=== PATIENT | male | born 1970 | race Hispanic/Latino ===

== ENCOUNTER 2016-07-16 03:38 | Emergency (ER) | payer MEDICARE, MEDICAID ==
[2016-07-16 03:39] VITALS: BMI 20.3
[2016-07-16 04:02] VITALS: TEMP 98.6; O2SAT 99
[2016-07-16] MEDS ORDERED: Sodium Chloride 0.9% 1,000 ML IV STA (04:26)
--- NOTE | 2016-07-16 04:41 | ED PDOC ---
Syncope/Near Syncope/Dizzyness Chief Complaint (Provider): dizziness History Per: Patient Additional Complaint(s): pt reports feeling dizzy, foggy and just "not well" since having seizure medications adjusted 2-3 weeks ago. pt is unable to give further symptomatology or last seizure episode. <Michi Kessler - Last Filed: 07/16/16 05:17> <Zuhair Santos - Last Filed: 07/16/16 05:54> Time Seen by Provider: 07/16/16 04:02 Chief Complaint (Nursing): Dizziness/Lightheaded Past Medical History Reviewed: Historical Data, Nursing Documentation, Vital Signs Vital Signs: Last Vital Signs Temp 98.6 F 07/16/16 03:58 Pulse 53 L 07/16/16 03:58 Resp 16 07/16/16 03:58 BP 94/58 L 07/16/16 03:58 Pulse Ox 99 07/16/16 03:58 - Medical History PMH: Cardia Arrhythmia, Seizures Denies: Chronic Kidney Disease - Surgical History Surgical History: Pacemaker - Family History Family History: States: No Known Family Hx - Social History Current smoker - smoking cessation education provided: No Alcohol: None Drugs: Denies <Michi Kessler - Last Filed: 07/16/16 05:17> Vital Signs: Last Vital Signs Temp 98.6 F 07/16/16 03:58 Pulse 59 L 07/16/16 05:24 Resp 17 07/16/16 05:24 BP 117/62 07/16/16 05:24 Pulse Ox 99 07/16/16 05:27 <Zuhair Santos - Last Filed: 07/16/16 05:54> - Home Medications Home Medications: Ambulatory Orders Medication Instructions Recorded Divalproex [Depakote ER] 500 mg PO BID 08/05/15 Levetiracetam [Keppra] 750 mg PO TID 08/05/15 Brivaracetam [Briviact] 1 tab PO DAILY 07/16/16 - Allergies Allergies/Adverse Reactions: Allergies Allergy/AdvReac Type Severity Reaction Status Date / Time No Known Allergies Allergy Verified 04/07/16 17:10 Review of Systems ROS Statement: Except As Marked, All Systems Reviewed And Found Negative Neurological: Positive for: Dizziness <Michi Kessler - Last Filed: 07/16/16 05:17> Physical Exam - Reviewed Nursing Documentation Reviewed: Yes Vital Signs Reviewed: Yes - Physical Exam Appears: Positive for: Well, Non-toxic, No Acute Distress Head Exam: Positive for: ATRAUMATIC, NORMAL INSPECTION, NORMOCEPHALIC Skin: Positive for: Normal Color, Warm, DRY Eye Exam: Positive for: EOMI, Normal appearance, PERRL Neck: Positive for: Normal, Painless ROM Cardiovascular/Chest: Positive for: Regular Rate, Rhythm Respiratory: Positive for: CNT, Normal Breath Sounds Gastrointestinal/Abdominal: Positive for: Normal Exam, Bowel Sounds, Soft. Negative for: Tenderness Extremity: Positive for: Normal ROM Neurologic/Psych: Positive for: Alert, cell manager II-XII, Oriented. Negative for: Motor/Sensory Deficits <Michi Kessler - Last Filed: 07/16/16 05:17> - Laboratory Results Result Diagrams: 07/16/16 04:46 07/16/16 04:46 - ECG O2 Sat by Pulse Oximetry: 99 <Michi Kessler - Last Filed: 07/16/16 05:17> - Laboratory Results Result Diagrams: 07/16/16 04:46 07/16/16 04:46 <Zuhair Santos - Last Filed: 07/16/16 05:54> Medical Decision Making Medical Decision Making: pt w/ vague c/o not feeling well since last med adjustment. labs wnl. ekg nsr. keppra level pending. will d/c home to f/u neuro for med adjustment. <Michi Kessler - Last Filed: 07/16/16 05:17> Disposition - Patient ED Disposition Is Patient to be Admitted: No - Disposition Disposition: Routine/Home Disposition Time: 05:19 <Michi Kessler - Last Filed: 07/16/16 05:17> <Zuhair Santos - Last Filed: 07/16/16 05:54> - Clinical Impression Clinical Impression: Adverse drug effect - Disposition Referrals: Helder Desai MD [Primary Care Provider] - Condition: GOOD Instructions: Epilepsy (ED)
[2016-07-16 04:50] LABS: BASO % 0.4 % (0.0-2.0); EOS # 0.4 K/uL (0.0-0.7); EOS % 6.5 % (0.0-4.0); HEMATOCRIT 42.3 % (35.0-51.0); LYMPH # 2.8 K/uL (1.0-4.3); LYMPH % 43.7 % (20.0-40.0); MEAN CORPUSCULAR HEMOGLOBIN 32.4 pg (27.0-31.0); MEAN CORPUSCULAR HGB CONC 33.4 g/dL (33.0-37.0); MEAN PLATELET VOLUME 9.2 fl (7.2-11.7); MONO # 0.5 K/uL (0.0-0.8); MONO % 7.1 % (0.0-10.0); NEUT # 2.7 K/uL (1.8-7.0); NEUT % 42.3 % (50.0-75.0); NRBC % 0.1 % (0.0-0.0); RED CELL DISTRIBUTION WIDTH 13.7 % (11.5-14.5); WHITE BLOOD COUNT 6.3 K/uL (4.8-10.8)
[2016-07-16 05:04] LABS: ALB/GLOB RATIO 1.3 (1.0-2.1); ALCOHOL SERUM < 10 mg/dl (0-10); ALKALINE PHOSPHATASE 63 U/L (38-126); ALT/SGPT 28 U/L (21-72); AST/SGOT 18 U/L (17-59); BILIRUBIN,TOTAL 0.4 mg/dl (0.2-1.3); BLOOD UREA NITROGEN 11 mg/dl (9-20); CALCIUM 8.7 mg/dL (8.4-10.2); CARBON DIOXIDE 24 mmol/L (22-30); CHLORIDE 104 mmol/L (98-107); GFR AFRICAN-AMERICAN > 60; GLUCOSE,RANDOM 90 mg/dL (75-110); POTASSIUM 4.1 MMOL/L (3.6-5.0); SODIUM 137 mmol/l (132-148); TOTAL PROTEIN 7.3 G/DL (6.3-8.2)
[2016-07-16 05:28] VITALS: BP 117/62; PULSE 59; RESP 17
--- NOTE | 2016-07-16 19:10 | CARD ---
APPROVED REPORT EKG Measurement Heart [id number] <Conclusion> Sinus bradycardia Otherwise normal ECG
== END 2016-07-16 05:52 | disposition home or self-care (01) ==
LOC: H.ER 03:38
DX: T88.7XXA Unspecified adverse effect of drug or medicament, initial encounter (principal); Z95.0 Presence of cardiac pacemaker
CPT/HCPCS: 80053; 80164; 80299; 85025; 93005; 96360; 99283; G0480; J7040

== ENCOUNTER 2016-08-07 04:45 | Emergency (ER) | payer MEDICARE, MEDICAID ==
[2016-08-07 04:45] VITALS: BMI 20.3
[2016-08-07 04:59] VITALS: BP 100/65; PULSE 56; RESP 17; TEMP 98; O2SAT 98
--- NOTE | 2016-08-07 05:27 | ED PDOC ---
HPI: Headache Time Seen by Provider: 08/07/16 04:55 Chief Complaint (Nursing): Seizure Chief Complaint (Provider): Headache History Per: Patient History/Exam Limitations: no limitations Onset/Duration Of Symptoms: Hrs (since waking up) Current Symptoms Are (Timing): Still Present Quality: "Pain" Preceeding Symptoms: None Additional Complaint(s): 45 year old male presents to ED with complaints of a headache and has a past medical history of a seizure disorder. Notes that he woke up with the headache and that it indicates that either he had a seizure while sleeping or will soon have a seizure. (-) weakness, numbness, tingling, or urinating on himself. Patient is notably tangential during HPI, needing constant redirection. States that he may have bitten his tongue. PCP: Dr. Lloyd Pendleton Past Medical History Reviewed: Historical Data, Nursing Documentation, Vital Signs Vital Signs: Last Vital Signs Temp 98.0 F 08/07/16 04:54 Pulse 56 L 08/07/16 04:54 Resp 17 08/07/16 04:54 BP 100/65 08/07/16 04:54 Pulse Ox 98 08/07/16 04:54 - Medical History PMH: Cardia Arrhythmia, Seizures Denies: Chronic Kidney Disease - Surgical History Surgical History: Pacemaker - Family History Family History: States: Unknown Family Hx - Home Medications Home Medications: Ambulatory Orders Medication Instructions Recorded Brivaracetam [Briviact] 1 tab PO BID 07/16/16 Divalproex [Depakote ER] 500 mg PO BID 08/07/16 - Allergies Allergies/Adverse Reactions: Allergies Allergy/AdvReac Type Severity Reaction Status Date / Time No Known Allergies Allergy Verified 04/07/16 17:10 Review of Systems ROS Statement: Except As Marked, All Systems Reviewed And Found Negative Genitourinary Male: Negative for: Incontinence Neurological: Positive for: Headache. Negative for: Weakness, Numbness, Other ( tingling) Physical Exam - Reviewed Nursing Documentation Reviewed: Yes Vital Signs Reviewed: Yes - Physical Exam Appears: Positive for: Non-toxic, No Acute Distress Head Exam: Positive for: ATRAUMATIC Skin: Positive for: Normal Color Eye Exam: Positive for: Normal appearance ENT: Positive for: Normal ENT Inspection, Other (no cheek/tongue laceration/ abrasion) Neck: Positive for: Normal Cardiovascular/Chest: Negative for: Murmur Respiratory: Negative for: Respiratory Distress Gastrointestinal/Abdominal: Positive for: Normal Exam Back: Positive for: Normal Inspection Extremity: Positive for: Normal ROM. Negative for: Deformity Lymphatic: Positive for: Normal Exam Neurologic/Psych: Positive for: Alert, software design analyst II-XII (intact), Oriented, Cerebellar Tests (intact), Gait (steady). Negative for: Motor/Sensory Deficits , Aphasia - Laboratory Results Result Diagrams: 08/07/16 05:35 08/07/16 05:35 - ECG O2 Sat by Pulse Oximetry: 98 (RA) Pulse Ox Interpretation: Normal Medical Decision Making Medical Decision Makin Initial impression: headache, unlikely patient suffered seizure Initial plan: * EKG * EtOH serum * Labs * Carbamezapine * Dilantin * UDrug screen * Lactic acid * Valproic Acid * Toradol 15mg IVP * Re-eval Scribe Attestation: Documented by Jaimee Moraes acting as a scribe for Ron Buchanan MD. Scribe Attestation: All medical record entries made by the Scribe were at my direction and personally dictated by me. I have reviewed the chart and agree that the record accurately reflects my personal performance of the history, physical exam, medical decision making, and the department course for this patient. I have also personally directed, reviewed, and agree with the discharge instructions and disposition. Disposition - Clinical Impression Clinical Impression: Headache - Disposition Referrals: Helder Desai MD [Medical Doctor] - Disposition: Transfer of Care Disposition Time: 07:00 Condition: STABLE Additional Instructions: Please take your medications as prescribed and followup with your neurologist in 1-2 days. Return to the ER for worsening or concerning symptoms. Instructions: General Headache (ED) Patient Signed Over To: Justina Morgan Handoff Comments: Pending re-evaluation status post IV drip
[2016-08-07 05:52] LABS: BASO % 0.8 % (0.0-2.0); EOS # 0.5 K/uL (0.0-0.7); EOS % 7.8 % (0.0-4.0); HEMATOCRIT 40.3 % (35.0-51.0); LYMPH # 2.7 K/uL (1.0-4.3); LYMPH % 45.1 % (20.0-40.0); MEAN CELL VOLUME 97.2 fl (80.0-94.0); MEAN CORPUSCULAR HEMOGLOBIN 32.6 pg (27.0-31.0); MEAN CORPUSCULAR HGB CONC 33.5 g/dL (33.0-37.0); MONO # 0.4 K/uL (0.0-0.8); NEUT # 2.3 K/uL (1.8-7.0); NEUT % 39.3 % (50.0-75.0); NRBC % 0.1 % (0.0-0.0); RED CELL DISTRIBUTION WIDTH 13.3 % (11.5-14.5)
[2016-08-07 06:22] LABS: ALCOHOL SERUM < 10 mg/dl (0-10); BLOOD UREA NITROGEN 9 mg/dl (9-20); CALCIUM 8.9 mg/dL (8.4-10.2); CARBON DIOXIDE 26 mmol/L (22-30); CHLORIDE 105 mmol/L (98-107); GFR AFRICAN-AMERICAN > 60; GLUCOSE,RANDOM 84 mg/dL (75-110); POTASSIUM 4.4 MMOL/L (3.6-5.0); SODIUM 140 mmol/l (132-148)
[2016-08-07 06:24] LABS: CARBAMAZEPINE < 3.0 ug/mL (4.0-12.0)
[2016-08-07 06:26] LABS: VALPROIC ACID 27.6 ug/mL (50.0-100.0)
[2016-08-07] MEDS ORDERED: Valproate 500 MG in Sodium Chloride 0.9% 100 ML IVPB ONE (06:41)
--- NOTE | 2016-08-07 13:41 | CARD ---
APPROVED REPORT EKG Measurement Heart [id number] ID [id number] <Conclusion> Sinus bradycardia ST elevation, probably due to early repolarization Borderline ECG
== END 2016-08-07 09:00 | disposition home or self-care (01) ==
LOC: H.ER 04:45
DX: R51 Headache (principal); Z86.69 Personal history of other diseases of the nervous system and sense organs
CPT/HCPCS: 80048; 80156; 80164; 80185; 83605; 85025; 93005; 96374; 96375; 99284; G0480; J1885

== ENCOUNTER 2017-02-11 00:59 | Emergency (ER) | payer MEDICARE ==
[2017-02-11 00:59] VITALS: BMI 20.3
[2017-02-11 01:10] VITALS: BP 116/66; PULSE 89; RESP 16; TEMP 98.9; O2SAT 99
--- NOTE | 2017-02-11 01:25 | ED PDOC ---
Syncope/Near Syncope/Dizziness Time Seen by Provider: 02/11/17 01:00 Chief Complaint (Nursing): Anxiety Chief Complaint (Provider): Seizure History Per: Patient Additional Complaint(s): 46 yo M hx seizure disorder,with a vagal stimulator in place, states he feels anxious because he feels like he might have a seizure. Denies drug or alcohol use. States compliance with keppra, vimpat and depakote. Denies head trauma or fall. He does not recall his last seizure episode. Past Medical History Reviewed: Nursing Documentation, Vital Signs Vital Signs: Last Vital Signs Temp 98.9 F 02/11/17 01:08 Pulse 89 02/11/17 01:08 Resp 16 02/11/17 01:08 BP 116/66 02/11/17 01:08 Pulse Ox 99 02/11/17 01:08 - Medical History PMH: Cardia Arrhythmia, Seizures Denies: Chronic Kidney Disease - Surgical History Other surgeries: vagal stimulator - Family History Family History: States: Unknown Family Hx - Living Arrangements Living Arrangements: With Family - Social History Current smoker - smoking cessation education provided: No Alcohol: None Drugs: Denies - Home Medications Home Medications: Ambulatory Orders Medication Instructions Recorded Brivaracetam [Briviact] 1 tab PO BID 07/16/16 Divalproex [Depakote ER] 500 mg PO BID 08/07/16 - Allergies Allergies/Adverse Reactions: Allergies Allergy/AdvReac Type Severity Reaction Status Date / Time No Known Allergies Allergy Verified 02/11/17 01:07 Review of Systems ROS Statement: Except As Marked, All Systems Reviewed And Found Negative Physical Exam - Reviewed Nursing Documentation Reviewed: Yes Vital Signs Reviewed: Yes - Physical Exam Appears: Positive for: Well, Non-toxic, No Acute Distress Head Exam: Positive for: ATRAUMATIC, NORMAL INSPECTION, NORMOCEPHALIC Skin: Positive for: Normal Color, Warm, DRY Eye Exam: Positive for: EOMI, Normal appearance, PERRL ENT: Positive for: Normal ENT Inspection Neck: Positive for: Normal, Painless ROM Cardiovascular/Chest: Positive for: Regular Rate, Rhythm Respiratory: Positive for: CNT, Normal Breath Sounds Gastrointestinal/Abdominal: Positive for: Normal Exam, Bowel Sounds, Soft Back: Positive for: Normal Inspection Extremity: Positive for: Normal ROM Neurologic/Psych: Positive for: Alert, Oriented - Laboratory Results Result Diagrams: 02/11/17 01:50 02/11/17 01:50 - ECG O2 Sat by Pulse Oximetry: 99 Medical Decision Making Medical Decision Making: EKG interpreted and cleared by ED MD IV access established and diagnostics ordered Medicated with depakotre PO Pt doing well on re-eval. reports being stable for discharge at this time Disposition - Clinical Impression Clinical Impression: Anxiety - Patient ED Disposition Is Patient to be Admitted: No - Disposition Disposition: Routine/Home Disposition Time: 04:37 Condition: STABLE Instructions: Anxiety (ED) Forms: [facility] (Gu[place]ian)
[2017-02-11 02:11] LABS: BASO # 0.1 K/uL (0.0-0.2); EOS # 0.4 K/uL (0.0-0.7); EOS % 6.2 % (0.0-4.0); HEMATOCRIT 38.7 % (35.0-51.0); LYMPH # 2.5 K/uL (1.0-4.3); LYMPH % 38.4 % (20.0-40.0); MEAN CELL VOLUME 98.3 fl (80.0-94.0); MEAN CORPUSCULAR HEMOGLOBIN 32.9 pg (27.0-31.0); MEAN CORPUSCULAR HGB CONC 33.5 g/dL (33.0-37.0); MEAN PLATELET VOLUME 8.8 fl (7.2-11.7); MONO # 0.5 K/uL (0.0-0.8); MONO % 7.1 % (0.0-10.0); NEUT # 3.1 K/uL (1.8-7.0); NEUT % 47.3 % (50.0-75.0); NRBC % 0.1 % (0.0-0.0); RED CELL DISTRIBUTION WIDTH 13.7 % (11.5-14.5); WHITE BLOOD COUNT 6.6 K/uL (4.8-10.8)
[2017-02-11 02:25] LABS: ALB/GLOB RATIO 1.3 (1.0-2.1); ALCOHOL SERUM < 10 mg/dl (0-10); ALKALINE PHOSPHATASE 68 U/L (38-126); ALT/SGPT 32 U/L (21-72); AST/SGOT 13 U/L (17-59); BILIRUBIN,TOTAL 0.3 mg/dl (0.2-1.3); BLOOD UREA NITROGEN 16 mg/dl (9-20); CARBON DIOXIDE 26 mmol/L (22-30); CHLORIDE 106 mmol/L (98-107); GFR AFRICAN-AMERICAN > 60; GLUCOSE,RANDOM 94 mg/dL (75-110); POTASSIUM 4.3 MMOL/L (3.6-5.0); SODIUM 140 mmol/l (132-148); TOTAL PROTEIN 6.7 G/DL (6.3-8.2)
[2017-02-11] MEDS ORDERED: Divalproex 500 mg DR(BID formulation) PO STA (03:30)
[2017-02-11 04:09] LABS: RBC URINE 1 /hpf (0-3); URINE BACTERIA RARE (<OCC); URINE BILIRUBIN NEGATIVE (NEGATIVE); URINE BLOOD NEGATIVE (NEGATIVE); URINE COLOR YELLOW (YELLOW); URINE GLUCOSE (UA) NEG (Normal); URINE KETONE TRACE mg/dL (NEGATIVE); URINE LEUKOCYTE ESTERASE NEG Leu/uL (Negative); URINE PROTEIN NEGATIVE (NEGATIVE); WBC URINE < 1 /hpf (0-5)
--- NOTE | 2017-02-13 11:57 | CARD ---
APPROVED REPORT EKG Measurement Heart [id number] <Conclusion> Sinus bradycardia ST elevation, probably due to early repolarization Borderline ECG
== END 2017-02-11 04:20 | disposition home or self-care (01) ==
LOC: H.ER 00:59
DX: F41.9 Anxiety disorder, unspecified (principal)
CPT/HCPCS: 80053; 80164; 80184; 80299; 81003; 82550; 84484; 85025; 99282; G0480

== ENCOUNTER 2017-12-02 13:33 | Emergency (ER) | payer MEDICARE ==
[2017-12-02 13:34] VITALS: BMI 20.3
--- NOTE | 2017-12-02 15:01 | ED PDOC ---
HPI: Seizure Time Seen by Provider: 12/02/17 14:02 Chief Complaint (Nursing): Substance Abuse Chief Complaint (Provider): Seizure History Per: Patient History/Exam Limitations: no limitations Recent Seizure Activity Began: Just Before Arrival Length Of Seizures (Duration): Unknown Associated Symptoms: Injury As A Result Of Seizure Activity (head) Additional Complaint(s): 47 year old male with a history of seizures and pacemaker brought in via EMS for witnessed seizure. Patient is unable to recall anything about the seizure, but knows he was on the street when it happened. His seizure was witnessed by bystanders. Patient sustained a head injury when he fell. He reportedly takes Depakote (500 BID) every day, but according to the pharmacy, he ran out of refills. No further complaints. PMD: none Past Medical History Reviewed: Historical Data, Nursing Documentation, Vital Signs Vital Signs: Last Vital Signs Temp 98 F 12/02/17 13:38 Pulse 98 H 12/02/17 13:38 Resp 18 12/02/17 13:38 BP 109/72 12/02/17 13:38 Pulse Ox 99 12/02/17 13:38 - Medical History PMH: Cardia Arrhythmia (UNCONFIRMED 11/17/17), HTN (UNSURE 11/17/17), Seizures Denies: Chronic Kidney Disease - Surgical History Surgical History: Pacemaker - Family History Family History: States: Unknown Family Hx - Living Arrangements Living Arrangements: Other (homeless) - Immunization History Hx Tetanus Toxoid Vaccination: No Hx Influenza Vaccination: No Hx Pneumococcal Vaccination: No - Home Medications Home Medications: Ambulatory Orders Medication Instructions Recorded Brivaracetam [Briviact] 100 mg PO Q12 12/02/17 Divalproex [Depakote DR] 500 mg PO Q12 #60 tcp 12/02/17 - Allergies Allergies/Adverse Reactions: Allergies Allergy/AdvReac Type Severity Reaction Status Date / Time No Known Allergies Allergy Verified 10/29/17 21:24 Review of Systems ROS Statement: Except As Marked, All Systems Reviewed And Found Negative Musculoskeletal: Positive for: Other (head injury) Physical Exam - Reviewed Vital Signs Reviewed: Yes - Physical Exam Appears: Positive for: Non-toxic, No Acute Distress Head Exam: Negative for: ATRAUMATIC (abrasion and swelling to left forehead) Skin: Positive for: Normal Color, Warm, Dry Eye Exam: Positive for: Normal appearance, EOMI, PERRL Neck: Positive for: Normal Cardiovascular/Chest: Positive for: Regular Rate, Rhythm. Negative for: Murmur Respiratory: Positive for: Normal Breath Sounds. Negative for: Respiratory Distress Gastrointestinal/Abdominal: Positive for: Normal Exam, Soft. Negative for: Tenderness Back: Positive for: Normal Inspection Extremity: Positive for: Normal ROM (upper and lower). Negative for: Pedal Edema, Deformity Neurologic/Psych: Positive for: Alert, Oriented (x3) - Laboratory Results Result Diagrams: 12/02/17 15:30 12/02/17 14:45 - ECG O2 Sat by Pulse Oximetry: 99 (RA) Pulse Ox Interpretation: Normal - Progress Re-evaluation Time: 16:00 Condition: Re-examined, Improved Medical Decision Making Medical Decision Making: Time: 1439 Initial Impression: seizures and head injury Differential diagnoses include but are not limited to: rule out intracranial bleeding and substance abuse Initial Plan: --CT head w/o contrast --EKG --Alcohol serum --BMP --Urine drug screen --Magnesium --Valproic acid --CBC with differentials Time: 1517 CT head w/o contrast: FINDINGS: HEMORRHAGE: No intracranial hemorrhage. BRAIN: Normal ro-white matter differentiation and density are appreciated throughout the cerebrum and cerebellum with the brainstem appearing unremarkable as well. There is no mass effect. There is no suspicious extra-axial fluid collection and the midline brain anatomy appears diffusely unremarkable. VENTRICLES: Unremarkable. No hydrocephalus. CALVARIUM: No destructive bony lesion or displaced fracture identified including through the skullbase. PARANASAL SINUSES: Left sphenoid sinusitis appreciated. MASTOID AIR CELLS: Unremarkable as visualized. No inflammatory changes. OTHER FINDINGS: None. IMPRESSION: No significant interval change in unenhanced head CT as discussed above. Scribe Attestation: Documented by Vashti Retana, acting as a scribe for Loretta Stewart MD Provider Scribe Attestation: All medical record entries made by the Scribe were at my direction and personally dictated by me. I have reviewed the chart and agree that the record accurately reflects my personal performance of the history, physical exam, medical decision making, and the department course for this patient. I have also personally directed, reviewed, and agree with the discharge instructions and disposition. Disposition - Clinical Impression Clinical Impression: Seizure - Patient ED Disposition Is Patient to be Admitted: No Counseled Patient/Family Regarding: Studies Performed, Diagnosis - Disposition Referrals: Jad Winter MD [Staff Provider] - Disposition: Routine/Home Disposition Time: 16:00 Condition: GOOD Additional Instructions: HARSHA MENDEZ, thank you for letting us take care of you today. Your provider was Loretta Stewart MD and you were treated for SUBSTANCE ABUSE. The emergency medical care you received today was directed at your acute symptoms. If you were prescribed any medication, please fill it and take as directed. It may take several days for your symptoms to resolve. Return to the Emergency Department if your symptoms worsen, do not improve, or if you have any other problems. Please contact your doctor or call one of the physicians/clinics you have been referred to that are listed on the Patient Visit Information form that is included in your discharge packet. Bring any paperwork you were given at discharge with you along with any medications you are taking to your follow up visit. Our treatment cannot replace ongoing medical care by a primary care p lety outside of the emergency department. Thank you for allowing the Critical access hospital team to be part of your care today. If you had an X-Ray or CT scan: A Radiologist will review the ED reading if any change in treatment is needed we will contact you. If you had a blood, urine, or wound culture: It will take several days for the results, if any change in treatment is needed we will contact you. If you had an STI test: It will take 48 hours for the results. Please call after 1 week if you have not heard back. Prescriptions: Divalproex [Depakote DR] 500 mg PO Q12 #60 tcp Instructions: Seizures, Adult (DC)
--- NOTE | 2017-12-02 15:19 | CT ---
Date of service: 12/02/2017 PROCEDURE: CT HEAD WITHOUT CONTRAST. HISTORY: head injury COMPARISON: Noncontrast head CT 04/07/2016. TECHNIQUE: Axial computed tomography images were obtained through the head/brain without intravenous contrast. Radiation dose: Total exam DLP = 926.71 mGy-cm. This CT exam was performed using one or more of the following dose reduction techniques: Automated exposure control, adjustment of the mA and/or kV according to patient size, and/or use of iterative reconstruction technique. FINDINGS: HEMORRHAGE: No intracranial hemorrhage. BRAIN: Normal ro-white matter differentiation and density are appreciated throughout the cerebrum and cerebellum with the brainstem appearing unremarkable as well. There is no mass effect. There is no suspicious extra-axial fluid collection and the midline brain anatomy appears diffusely unremarkable. VENTRICLES: Unremarkable. No hydrocephalus. CALVARIUM: No destructive bony lesion or displaced fracture identified including through the skullbase. PARANASAL SINUSES: Left sphenoid sinusitis appreciated. MASTOID AIR CELLS: Unremarkable as visualized. No inflammatory changes. OTHER FINDINGS: None. IMPRESSION: No significant interval change in unenhanced head CT as discussed above.
[2017-12-02 15:49] LABS: BASO # 0.1 K/uL (0.0-0.2); BASO % 0.8 % (0.0-2.0); EOS % 0.6 % (0.0-4.0); HEMOGLOBIN 14.7 g/dL (12.0-18.0); LYMPH # 1.1 K/uL (1.0-4.3); LYMPH % 15.8 % (20.0-40.0); MEAN CELL VOLUME 99.2 fl (80.0-94.0); MEAN CORPUSCULAR HEMOGLOBIN 32.7 pg (27.0-31.0); MEAN PLATELET VOLUME 9.9 fl (7.2-11.7); MONO # 0.3 K/uL (0.0-0.8); MONO % 4.4 % (0.0-10.0); NEUT # 5.6 K/uL (1.8-7.0); NEUT % 78.4 % (50.0-75.0); RBC 4.5 Mil/uL (4.40-5.90); RED CELL DISTRIBUTION WIDTH 14.4 % (11.5-14.5); WHITE BLOOD COUNT 7.1 K/uL (4.8-10.8)
[2017-12-02 16:35] VITALS: RESP 19
[2017-12-02] MEDS ORDERED: Valproate 500 MG in Sodium Chloride 0.9% 100 ML IVPB ONE (17:00)
[2017-12-02 17:27] LABS: BLOOD UREA NITROGEN 6 mg/dl (9-20); CALCIUM 9.3 mg/dL (8.4-10.2); GFR NON-AFRICAN AMERICAN > 60
[2017-12-02 17:57] LABS: BARBITURATES, UR NEGATIVE (NEGATIVE); BENZODIAZEPINES, UR NEGATIVE (NEGATIVE); OPIATES, UR NEGATIVE (NEGATIVE); PHENCYCLIDINE, UR NEGATIVE (NEGATIVE)
[2017-12-02 18:58] VITALS: BP 110/78; PULSE 80; TEMP 97
--- NOTE | 2017-12-03 07:02 | CARD ---
APPROVED REPORT Date of service: 12/02/2017 EKG Measurement Heart [id number] <Conclusion> Normal sinus rhythm Normal ECG
[2017-12-03 17:20] VITALS: O2SAT 99
== END 2017-12-02 18:58 | disposition home or self-care (01) ==
LOC: H.ER 13:33
DX: R56.9 Unspecified convulsions (principal); S09.90XA Unspecified injury of head, initial encounter; W19.XXXA Unspecified fall, initial encounter; Y92.89 Other specified places as the place of occurrence of the external cause; I10 Essential (primary) hypertension; Z95.0 Presence of cardiac pacemaker; Z79.899 Other long term (current) drug therapy
CPT/HCPCS: 70450; 80048; 80164; 83735; 85025; 93005; 99285; G0480

== ENCOUNTER 2018-04-21 17:49 | Inpatient (IN) | payer MEDICARE ==
[2018-04-21 18:47] VITALS: BMI 21.7
[2018-04-21] MEDS ORDERED: Dextrose 5%/0.45% NS 1,000 ML IV SCH (19:15)
[2018-04-21 20:21] LABS: HEMOGLOBIN 12.8 g/dL (12.0-18.0); MEAN CELL VOLUME 95.3 fl (80.0-94.0); MEAN CORPUSCULAR HEMOGLOBIN 31.7 pg (27.0-31.0); MEAN CORPUSCULAR HGB CONC 33.3 g/dL (33.0-37.0); RBC 4.03 Mil/uL (4.40-5.90); RED CELL DISTRIBUTION WIDTH 13.9 % (11.5-14.5); WHITE BLOOD COUNT 5.6 K/uL (4.8-10.8)
[2018-04-21 20:50] LABS: BLOOD UREA NITROGEN 10 mg/dl (9-20); CALCIUM 8.7 mg/dL (8.4-10.2); GFR NON-AFRICAN AMERICAN > 60
[2018-04-21] MEDS: Valproic Acid 250 mg/5 ml Oral Syrup (60 ml) PO SCH (21:00)
[2018-04-22] MEDS: Valproic Acid 250 mg/5 ml Oral Syrup (60 ml) PO SCH ×2 (08:44→17:12)
--- NOTE | 2018-04-22 10:06 | PCM.VEEG ---
Video EEG - Procedure Start Date: 04/21/18 Start Time: 21:05 End Date: 04/22/18 End Time: 08:55 Technical Summary: DATA ACQUISITION: This was a multichannel inpatient video-EEG, a minimum of 22 channels were uti lized, performed in accordance with recommendations specified by the [place] [employer] (Tricia Dykes et al. ACNS Guideline 1: Minimum Technical Requirements for Performing Clinical Electroencephalography. Journal of Clinical Neurophysiology 2016;33:303-7). The 10-20 electrode placement system was utilized in accordance with guidelines detailed by the International Federation of Clinical Neurophysiology (Kendra Langley et al. The Ten-Twenty Electrode System of the International Federation. Recommendations for the Practice of Clinical Neurophysiology: Guidelines of the International Federation of Clinical Physiology 1999; EEG Suppl. 52.). DATA REVIEW / SPIKE DETECTION / DIGITAL ANALYSIS: The entire EEG was scanned and reviewed. Synchronized audio and video recording were reviewed at the time of each alarm and whenever an abnormality or suspicious activity was noted. The entire recording was analyzed utilizing an automated digital spike and seizure analysis program and all automatic spike and seizure detections were manually reviewed. A compressed spectral array was displayed and reviewed alongside the raw EEG tracings. In addition, further analysis of the EEG was performed when abnormalities were identified, including montage changes, dipole source localization, and frequency band identification. This study was attended 24 hours per day. - Interpretation Description of the study: 47 y/o man with a history of epilepsy. EEG Finding during wakefulness: During active states, the EEG was characterized by 14-25 Hz, 15-30 uV activity bilaterally in fronto-central regions. Resting wakefulness was characterized by a symmetric posterior dominant rhythm of 8 to 9 Hz, 30-50 uV, which was reactive to eye opening and closing. Drowsiness was associated with slow roving eye movements, slowing and fragmentation of the posterior dominant rhythm, and bilateral 4-7 Hz, 40-70 uV theta activity, sometimes with a shifting predominance. There were no significant asymmetries noted during wakefulness. EEG Finding during sleep: Light sleep was recorded and was characterized by fronto-central slowing at 5-7 H, 50-125 uV, sharp central vertex waves, bilateral sleep spindles, and K- complexes; shifting asymmetries were evident. Deeper stages of sleep were recorded and were characterized an increasing frequency of 1-4 Hz, 50-100 uV delta activity. REM sleep was also recorded and was characterized by mixed frequency (3-15 Hz) low voltage (< 20 uV) activity with clusters of rapid horizontal and vertical eye movements. There were no significant asymmetries noted during sleep. Interictal non-epileptiform abnormalities: None Interictal epileptiform abnormalities: Frequent left temporal sharp waves were seen maximally at F7, seen in isolation. rare right temporal F8, sharp waves were seen. There were also, rare bursts of generalized mainly bifrontal fast spikes with slow waves at 5 to 6 Hz. Ictal epileptiform abnormalities: No seizures No PB activations. Induction procedures: None - Impression Impression: This is an abnormal video-EEG monitoring study due to the presence of; 1- Frequent left temporal sharp waves, maximally at F8, and rare right temporal sharps at F8 2- Rare generalized vs bi-frotnal interictal discharges. No seizures, not in status epilepticus. 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 Patient is on Depakote currently (broad spectrum), that is a good choice for his epilepsy.
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
[2018-04-22] MEDS: Lacosamide 50 MG Tab PO SCH (17:11)
--- NOTE | 2018-04-22 20:39 | CP.PCM.PN ---
Subjective - Date & Time of Evaluation Date of Evaluation: 04/22/18 Time of Evaluation: 22:22 - Subjective Subjective: 47 yo admitted for seizure disorder Objective - Vital Signs/Intake and Output Vital Signs (last 24 hours): Temp Pulse Resp BP Pulse Ox 97.5 F L 75 13 105/63 100 04/22/18 16:00 04/22/18 18:00 04/22/18 18:00 04/22/18 18:00 04/22/18 18:00 - Medications Medications: Current Medications Lacosamide (Vimpat) 50 mg PO BID [facility] Last Admin: 04/22/18 17:11 Dose: 50 mg Lorazepam (Ativan) 2 mg IVP Q6 PRN PRN Reason: Seizure activity Valproate Sodium (Depakene Oral Syrup) 750 mg PO BID [facility] Last Admin: 04/22/18 17:12 Dose: 750 mg - Labs Labs: 04/21/18 19:52 04/21/18 19:52 - Respiratory Exam Respiratory Exam: NORMAL BREATHING PATTERN - Cardiovascular Exam Cardiovascular Exam: REGULAR RHYTHM - GI/Abdominal Exam GI & Abdominal Exam: Normal Bowel Sounds Assessment and Plan - Assessment and Plan (Free Text) Assessment: Seizure Disoder Admit to ICU Neurology Multiple calls with hospital staff Pt admitted for VEEEG monitoring
--- NOTE | 2018-04-23 09:03 | PCM.VEEG ---
Video EEG - Procedure Start Date: 04/22/18 Start Time: 08:55 End Date: 04/23/18 End Time: 07:05 Technical Summary: DATA ACQUISITION: This was a multichannel inpatient video-EEG, a minimum of 22 channels were uti lized, performed in accordance with recommendations specified by the [place] [employer] (Tricia Dykes et al. ACNS Guideline 1: Minimum Technical Requirements for Performing Clinical Electroencephalography. Journal of Clinical Neurophysiology 2016;33:303-7). The 10-20 electrode placement system was utilized in accordance with guidelines detailed by the International Federation of Clinical Neurophysiology (Kendra Langley et al. The Ten-Twenty Electrode System of the International Federation. Recommendations for the Practice of Clinical Neurophysiology: Guidelines of the International Federation of Clinical Physiology 1999; EEG Suppl. 52.). DATA REVIEW / SPIKE DETECTION / DIGITAL ANALYSIS: The entire EEG was scanned and reviewed. Synchronized audio and video recording were reviewed at the time of each alarm and whenever an abnormality or suspicious activity was noted. The entire recording was analyzed utilizing an automated digital spike and seizure analysis program and all automatic spike and seizure detections were manually reviewed. A compressed spectral array was displayed and reviewed alongside the raw EEG tracings. In addition, further analysis of the EEG was performed when abnormalities were identified, including montage changes, dipole source localization, and frequency band identification. This study was attended 24 hours per day. - Interpretation Description of the study: Indication; epilepsy EEG Finding during wakefulness: During active states, the EEG was characterized by 14-25 Hz, 15-30 uV activity bilaterally in fronto-central regions. Resting wakefulness was characterized by a symmetric posterior dominant rhythm of 8 to 9 Hz, 30-50 uV, which was reactive to eye opening and closing. Drowsiness was associated with slow roving eye movements, slowing and fragmentation of the posterior dominant rhythm, and bilateral 4-7 Hz, 40-70 uV theta activity, sometimes with a shifting predominance. There were no significant asymmetries noted during wakefulness. EEG Finding during sleep: EEG Finding during sleep: Light sleep was recorded and was characterized by fronto-central slowing at 5-7 H, 50-125 uV, sharp central vertex waves, bilateral sleep spindles, and K- complexes; shifting asymmetries were evident. Deeper stages of sleep were recorded and were characterized an increasing frequency of 1-4 Hz, 50-100 uV delta activity. REM sleep was also recorded and was characterized by mixed frequency (3-15 Hz) low voltage (< 20 uV) activity with clusters of rapid horizontal and vertical eye movements. There were no significant asymmetries noted during sleep. Interictal non-epileptiform abnormalities: Interictal non-epileptiform abnormalities: None Interictal epileptiform abnormalities: Frequent left temporal sharp waves were seen maximally at F7, seen in isolation. rare right temporal F8, sharp waves were seen. There were also, rare bursts of generalized mainly bifrontal fast spikes with slow waves at 5 to 6 Hz. Ictal epileptiform abnormalities: No seizures, NO PB activations. Induction procedures: None - Impression Impression: This is an abnormal video-EEG monitoring study due to the presence of; 1- Occasional left temporal sharp waves, maximally at F8, and rare right temporal sharps at F8 2- Rare generalized vs bi-frotnal interictal discharges. No seizures, not in status epilepticus. Study is similar to the first 24 hs of recording. 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
[2018-04-23] MEDS: Valproic Acid 250 mg/5 ml Oral Syrup (60 ml) PO SCH ×2 (09:59→16:00)
[2018-04-23] MEDS: Lacosamide 50 MG Tab PO SCH ×2 (10:02→16:00)
--- NOTE | 2018-04-23 10:23 | CARD ---
APPROVED REPORT Date of service: 04/21/2018 EKG Measurement Heart [id number] FL [id number] [id number] <Conclusion> Normal sinus rhythm ST elevation, probably due to early repolarization Borderline ECG
--- NOTE | 2018-04-23 11:22 | CP.PCM.PN ---
Subjective - Date & Time of Evaluation Date of Evaluation: 04/23/18 Time of Evaluation: 11:21 - Subjective Subjective: Neuro Follow-Up Note: Mr. Ta was evaluated this afternoon in the ICU with VEEG in progress. He denies any new complaints or seizure activity. He is eager to be d/c. Objective - Vital Signs/Intake and Output Vital Signs (last 24 hours): Temp Pulse Resp BP Pulse Ox 98.9 F 63 16 100/65 98 04/23/18 08:00 04/23/18 10:00 04/23/18 10:00 04/23/18 10:00 04/23/18 10:00 - Medications Medications: Current Medications Lacosamide (Vimpat) 50 mg PO BID [facility] Last Admin: 04/23/18 10:02 Dose: 50 mg Lorazepam (Ativan) 2 mg IVP Q6 PRN PRN Reason: Seizure activity Valproate Sodium (Depakene Oral Syrup) 750 mg PO BID [facility] Last Admin: 04/23/18 09:59 Dose: 750 mg - Labs Labs: 04/21/18 19:52 04/21/18 19:52 - Constitutional Appears: Well, Non-toxic, No Acute Distress - Head Exam Head Exam: ATRAUMATIC, NORMAL INSPECTION, NORMOCEPHALIC - Eye Exam Eye Exam: EOMI, Normal appearance, PERRL Pupil Exam: NORMAL ACCOMODATION, PERRL - ENT Exam ENT Exam: Mucous Membranes Moist - Neck Exam Neck Exam: Full ROM, Normal Inspection - Respiratory Exam Respiratory Exam: NORMAL BREATHING PATTERN - Extremities Exam Extremities Exam: Full ROM. absent: Calf Tenderness, Pedal Edema - Neurological Exam Neurological Exam: Alert, Awake, CN II-XII Intact, Oriented x3, Reflexes Normal Neuro motor strength exam: Left Upper Extremity: 5, Right Upper Extremity: 5, Left Lower Extremity: 5, Right Lower Extremity: 5 Additional comments: No motor or sensory deficits. No tremors or abnormal movements noted. - Psychiatric Exam Psychiatric exam: Flat Affect Additional comments: slow to verbally respond, however answers all questions appropriately. - Skin Skin Exam: Normal Color Assessment and Plan (1) Epilepsy Assessment & Plan: -VEEG (04/22/18): This is an abnormal video-EEG monitoring study due to the presence of; 1- Frequent left temporal sharp waves, maximally at F8, and rare right temporal sharps at F8; 2- Rare generalized vs bi-frontal interictal d ischarges. No seizures, not in status epilepticus -VEEG (04/23/18): This is an abnormal video-EEG monitoring study due to the presence of; 1- Occasional left temporal sharp waves, maximally at F8, and rare right temporal sharps at F8; 2- Rare generalized vs bi-frotnal interictal discharges. No seizures, not in status epilepticus. Study is similar to the first 24 hs of recording -Continue Depakote 750 mg PO BID and Vimpat 50 mg PO BID upon d/c. Please provide rx for these medications. If attending is unable to write the rx, please notify me and I will send them to pt's pharmacy electronically. -No further neuro recommendations. Cleared for d/c. F/U with Dr. Obrien in the office within 1-2 weeks to have Vimpat tapered. Thank you for allowing us to participate in this pt's care. Radha Wright, REBA, [employer] Case discussed with Dr. Chapa Status: Acute
--- NOTE | 2018-04-23 19:25 | CP.PCM.PN ---
Subjective - Date & Time of Evaluation Date of Evaluation: 04/23/18 Time of Evaluation: 22:22 - Subjective Subjective: Above noted Objective - Vital Signs/Intake and Output Vital Signs (last 24 hours): Temp Pulse Resp BP Pulse Ox 98.0 F 68 20 115/83 98 04/23/18 16:00 04/23/18 16:00 04/23/18 13:59 04/23/18 16:00 04/23/18 13:59 - Medications Medications: Current Medications Lacosamide (Vimpat) 50 mg PO BID [facility] Last Admin: 04/23/18 16:00 Dose: 50 mg Lorazepam (Ativan) 2 mg IVP Q6 PRN PRN Reason: Seizure activity Valproate Sodium (Depakene Oral Syrup) 750 mg PO BID [facility] Last Admin: 04/23/18 16:00 Dose: 750 mg - Labs Labs: 04/21/18 19:52 04/21/18 19:52 - Respiratory Exam Respiratory Exam: NORMAL BREATHING PATTERN - Cardiovascular Exam Cardiovascular Exam: REGULAR RHYTHM - GI/Abdominal Exam GI & Abdominal Exam: Normal Bowel Sounds Assessment and Plan - Assessment and Plan (Free Text) Assessment: Seizure Disoder Admit to ICU Neurology Homeless
[2018-04-24] MEDS: Lacosamide 50 MG Tab PO SCH ×2 (09:05→16:30)
[2018-04-24] MEDS: Valproic Acid 250 mg/5 ml Oral Syrup (60 ml) PO SCH ×2 (09:07→16:27)
--- NOTE | 2018-04-24 14:54 | CP.PCM.PCO ---
Assessment/Plan - Assessment/Plan Assessment (Free Text): Pt seen and examined at bedside. Aao x3, in no distress heart: RRR, lungs: CTA, abd: soft non tender, neurovasclar check intact Pt cleared for d/c by neuro and Dr. Gandhi. Rx Depakene 750mg bid and Vimpat 50mg bid sent to [facility] to be filled prior to d/c. Pt states he will be going home with his daughter. SW spoke to pt regarding his discharge plans Pt to f/u with Dr. Ross in [address] Gandhi in 1 week. Pt aware of plan.
[2018-04-24 15:41] VITALS: O2SAT 98
--- NOTE | 2018-04-24 20:59 | CP.PCM.PN ---
Subjective - Date & Time of Evaluation Date of Evaluation: 04/24/18 Time of Evaluation: 22:22 - Subjective Subjective: Above noted Objective - Vital Signs/Intake and Output Vital Signs (last 24 hours): Temp Pulse Resp BP Pulse Ox 97.2 F L 72 20 103/62 98 04/24/18 15:41 04/24/18 15:41 04/24/18 15:41 04/24/18 15:41 04/24/18 15:41 - Medications Medications: Current Medications Lacosamide (Vimpat) 50 mg PO BID [facility] Last Admin: 04/24/18 16:30 Dose: 50 mg Lamotrigine (Lamictal) 25 mg PO DAILY [facility] Lorazepam (Ativan) 2 mg IVP Q6 PRN PRN Reason: Seizure activity Valproate Sodium (Depakene Oral Syrup) 750 mg PO BID [facility] Last Admin: 04/24/18 16:27 Dose: 750 mg - Labs Labs: 04/21/18 19:52 04/21/18 19:52 - Respiratory Exam Respiratory Exam: NORMAL BREATHING PATTERN - Cardiovascular Exam Cardiovascular Exam: REGULAR RHYTHM - GI/Abdominal Exam GI & Abdominal Exam: Normal Bowel Sounds Assessment and Plan - Assessment and Plan (Free Text) Assessment: Seizure Disoder per Neurology New medication Homeless cost of meds SS
[2018-04-25 07:48] VITALS: BP 103/69; PULSE 59; RESP 19; TEMP 97.5
[2018-04-25] MEDS: Lacosamide 50 MG Tab PO SCH (09:08)
[2018-04-25] MEDS: Valproic Acid 250 mg/5 ml Oral Syrup (60 ml) PO SCH (09:24)
[2018-04-25] MEDS ORDERED: Valproic Acid 250 mg/5 ml UD Cup PO SCH (09:30)
--- NOTE | 2018-04-25 18:09 | CP.PCM.PN ---
Subjective - Date & Time of Evaluation Date of Evaluation: 04/25/18 Time of Evaluation: 22:22 - Subjective Subjective: Above noted Objective - Vital Signs/Intake and Output Vital Signs (last 24 hours): Temp Pulse Resp BP Pulse Ox 97.5 F L 59 L 19 103/69 98 04/25/18 07:48 04/25/18 07:48 04/25/18 07:48 04/25/18 07:48 04/25/18 07:48 - Labs Labs: 04/21/18 19:52 04/21/18 19:52 - Respiratory Exam Respiratory Exam: NORMAL BREATHING PATTERN - Cardiovascular Exam Cardiovascular Exam: REGULAR RHYTHM - GI/Abdominal Exam GI & Abdominal Exam: Normal Bowel Sounds Assessment and Plan - Assessment and Plan (Free Text) Assessment: Seizure Disoder As per Neurology New medication Homeless cost of meds SS
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
== END 2018-04-25 14:55 | disposition home or self-care (01) | DRG 101 ==
LOC: UNDOADMIN 17:49 → H.ICU/CCU 17:49 → H.MEDSURG1 04-23 18:40
PROVIDERS: ADMIT Family Medicine Geriatric Medicine; ATTEND Family Medicine Geriatric Medicine
DX: G40.909 Epilepsy, unspecified, not intractable, without status epilepticus (principal); I10 Essential (primary) hypertension; F17.210 Nicotine dependence, cigarettes, uncomplicated; Z59.0 Homelessness